=== PATIENT | male | born 1965 | race Caucasian/White ===

== ENCOUNTER → 2024-08-24 10:09 | Outpatient (REF) | payer BC, SELFPAY | LOC: HWRAD 10:09 | PROVIDERS: ATTENDING PHYSICIAN Nurse Practitioner Family | DX: M79.605 Pain in left leg (principal); Z98.890 Other specified postprocedural states | CPT/HCPCS: 93970 ==

== ENCOUNTER 2025-05-22 06:22 | Day surgery (SDC) | payer BC, SELFPAY ==
[2025-05-22 11:02] LABS: Glucose - Point of Care 109 mg/dl (70-99)
== END 2025-05-22 12:56 | disposition home or self-care (01) ==
LOC: GI 06:22
PROVIDERS: ATTENDING PHYSICIAN Student in an Organized Health Care Education/Training Program
DX: Z12.11 Encounter for screening for malignant neoplasm of colon (principal); K57.30 Diverticulosis of large intestine without perforation or abscess without bleeding; K64.0 First degree hemorrhoids; K63.89 Other specified diseases of intestine; K63.5 Polyp of colon; Z80.0 Family history of malignant neoplasm of digestive organs
CPT/HCPCS: 45385; 45380; 82962; 88305

== ENCOUNTER 2025-10-25 06:25 | Day surgery (SDC) | payer BC, SELFPAY ==
[2025-10-25 09:25] LABS: Glucose - Point of Care 125 mg/dl (70-99)
== END 2025-10-25 11:02 | disposition home or self-care (01) ==
LOC: GI 06:25
PROVIDERS: ATTENDING PHYSICIAN Student in an Organized Health Care Education/Training Program
DX: K29.50 Unspecified chronic gastritis without bleeding (principal); K21.9 Gastro-esophageal reflux disease without esophagitis; K22.89 Other specified disease of esophagus; K31.89 Other diseases of stomach and duodenum; Z13.810 Encounter for screening for upper gastrointestinal disorder
CPT/HCPCS: 43239; 82962; 88305; 88342